=== PATIENT | male | born 1975 | race Hispanic/Latino ===

== ENCOUNTER 2021-04-06 16:53 | Inpatient (IN) | payer SELFPAY ==
[2021-04-05] MEDS: SODIUM CHLORIDE 0.9% 1000ML 1,000 ML IV SCH (21:30)
[~2021-04-06] VITALS: Ht 154.9 cm; Wt 59.6 kg
[2021-04-06 17:04] VITALS: BP 118/73
[2021-04-06 17:17] LABS: BASOPHILS % (AUTO) 0.4 % (0.0-5.0); EOSINOPHILS % (AUTO) 1.4 % (0.0-8.0); HEMATOCRIT 41.2 % (42-54); LYMPHOCYTES % (AUTO) 15.2 % (21.0-51.0); MEAN CORPUSCULAR HEMOGLOBIN 28.3 pg (27.0-33.0); MEAN CORPUSCULAR HGB CONC 33.7 g/dL (32.0-36.0); MEAN CORPUSCULAR VOLUME 83.9 fL (79-99); MONOCYTES % (AUTO) 15.2 % (3.0-13.0); NEUTROPHILS % (AUTO) 67.5 % (40.0-77.0); PLATELET COUNT (AUTO) 214 K/uL (130-400); RED BLOOD CELL COUNT(AUTO) 4.91 MIL/uL (4.50-6.20); WHITE BLOOD COUNT (AUTO) 7.7 K/uL (4.8-10.8)
[2021-04-06 17:28] LABS: CREATININE 2.3 mg/dL (0.5-1.5); POTASSIUM 3.5 mmol/L (3.5-5.1)
[2021-04-06 17:41] LABS: ALBUMIN 3.9 g/dL (3.5-5.0); BILIRUBIN,TOTAL 1.7 mg/dL (0.2-1.0)
[2021-04-06] MEDS ORDERED: LACTATED RINGERS 1000ML 1,000 ML IV ONE (17:45)
[2021-04-06 18:16] LABS: APPEARANCE,URINE Clear (CLEAR); BILIRUBIN,URINE Negative (NEGATIVE); COLOR,URINE Yellow (YELLOW); GLUCOSE, URINE (UA) Negative (NEGATIVE); KETONES,URINE 40 mg/dL (NEGATIVE); LEUKOCYTE ESTERASE ,URINE Negative (NEGATIVE); NITRATE,URINE Negative (NEGATIVE); OCCULT BLOOD,URINE Negative (NEGATIVE); PROTEIN,URINE Trace mg/dL (NEGATIVE)
[2021-04-06 18:18] LABS: BACTERIA,URINE Rare /HPF (None Seen); RBC,URINE None Seen /HPF (0-1); SQUAMOUS EPITHELIAL CELL,UR None Seen /HPF (0-2); WBC,URINE 0-1 /HPF (0-1)
[2021-04-06] MEDS ORDERED: SODIUM CHLORIDE 0.9% 1000ML 1,000 ML IV ONE ×2 (19:30)
[2021-04-06] MEDS ORDERED: LACTULOSE 20 GM/30 ML UDCUP PO PRN (20:15)
[2021-04-06] MEDS ORDERED: DIPHENHYDRAMINE HCL 25 MG CAPSULE PO PRN (20:15)
[2021-04-06] MEDS ORDERED: HYDRALAZINE HCL 20 MG/ML VIAL IV PRN (20:15)
[2021-04-06] MEDS ORDERED: ONDANSETRON HCL 4 MG/2 ML VIAL IV PRN (20:15)
[2021-04-06] MEDS ORDERED: ACETAMINOPHEN 325 MG TAB PO PRN (20:15)
[2021-04-06] MEDS ORDERED: NITROGLYCERIN 0.4 MG SL TAB SL PRN (20:15)
[2021-04-06] MEDS ORDERED: GUAIFENESIN-DM 200/20 MG 10 ML PO PRN (20:15)
[2021-04-06] MEDS ORDERED: ACETAMINOPHEN-CODEINE 300/30MG TAB PO PRN (20:15)
[2021-04-06] MEDS ORDERED: ALBUTEROL SULFATE 0.083% 2.5 MG/3 ML INH IH PRN (20:15)
[2021-04-06] MEDS ORDERED: MAG HYDROX/AL HYDROX/SIMETH ES 30 ML SUSP UDCUP PO PRN (20:15)
[2021-04-06] MEDS ORDERED: FAMOTIDINE/PF 20 MG/2 ML VIAL IV ONE (21:16)
[2021-04-06] MEDS: HEPARIN SODIUM 5000UNIT/ML 1ML VIAL SQ SCH (21:27)
[2021-04-07] VITALS (8 sets, daily range): BP systolic 95–108; BP diastolic 54–69
[2021-04-07 08:11] LABS: BASOPHILS % (AUTO) 0.6 % (0.0-5.0); EOSINOPHILS % (AUTO) 0.4 % (0.0-8.0); HEMATOCRIT 37.8 % (42-54); LYMPHOCYTES % (AUTO) 28.7 % (21.0-51.0); MEAN CORPUSCULAR HEMOGLOBIN 29.1 pg (27.0-33.0); MEAN CORPUSCULAR HGB CONC 33.3 g/dL (32.0-36.0); MEAN CORPUSCULAR VOLUME 87.3 fL (79-99); MONOCYTES % (AUTO) 14.9 % (3.0-13.0); NEUTROPHILS % (AUTO) 55.3 % (40.0-77.0); PLATELET COUNT (AUTO) 182 K/uL (130-400); RED BLOOD CELL COUNT(AUTO) 4.33 MIL/uL (4.50-6.20); RED CELL DISTRIBUTION WIDTH 13.2 % (11.0-15.5); WHITE BLOOD COUNT (AUTO) 7.1 K/uL (4.8-10.8)
[2021-04-07 08:33] LABS: CREATININE 0.8 mg/dL (0.5-1.5); POTASSIUM 3.8 mmol/L (3.5-5.1)
[2021-04-07] MEDS: FAMOTIDINE/PF 20 MG/2 ML VIAL IV SCH (08:52)
[2021-04-07] MEDS: HEPARIN SODIUM 5000UNIT/ML 1ML VIAL SQ SCH ×2 (08:52→22:45)
[2021-04-07] MEDS ORDERED: SODIUM CHLORIDE 0.9% 1000ML 1,000 ML IV ONE (09:46)
[2021-04-07] MEDS: SODIUM CHLORIDE 0.9% 1000ML 1,000 ML IV SCH ×2 (09:53→12:15)
[2021-04-08] VITALS (8 sets, daily range): BP systolic 102–121; BP diastolic 59–75
[2021-04-08] MEDS: SODIUM CHLORIDE 0.9% 1000ML 1,000 ML IV SCH ×2 (01:01→20:36)
[2021-04-08] MEDS: THIAMINE HCL 100 MG TABLET PO SCH (08:33)
[2021-04-08] MEDS: FOLIC ACID 1 MG TABLET PO SCH (08:33)
[2021-04-08] MEDS: FAMOTIDINE/PF 20 MG/2 ML VIAL IV SCH (08:33)
[2021-04-08] MEDS: HEPARIN SODIUM 5000UNIT/ML 1ML VIAL SQ SCH ×2 (08:34→20:41)
[2021-04-09 04:00] VITALS: BP 116/59
[2021-04-09] MEDS: SODIUM CHLORIDE 0.9% 1000ML 1,000 ML IV SCH (04:54)
[2021-04-09 08:00] VITALS: BP 123/82
[2021-04-09 08:20] LABS: BASOPHILS % (AUTO) 0.4 % (0.0-5.0); EOSINOPHILS % (AUTO) 1.2 % (0.0-8.0); HEMATOCRIT 35.5 % (42-54); LYMPHOCYTES % (AUTO) 47.3 % (21.0-51.0); MEAN CORPUSCULAR HEMOGLOBIN 29.3 pg (27.0-33.0); MEAN CORPUSCULAR HGB CONC 34.1 g/dL (32.0-36.0); MONOCYTES % (AUTO) 9.8 % (3.0-13.0); NEUTROPHILS % (AUTO) 41.1 % (40.0-77.0); PLATELET COUNT (AUTO) 158 K/uL (130-400); RED BLOOD CELL COUNT(AUTO) 4.13 MIL/uL (4.50-6.20); RED CELL DISTRIBUTION WIDTH 13.2 % (11.0-15.5); WHITE BLOOD COUNT (AUTO) 5.1 K/uL (4.8-10.8)
[2021-04-09 08:35] LABS: ALBUMIN 2.9 g/dL (3.5-5.0); BILIRUBIN,TOTAL 0.6 mg/dL (0.2-1.0); CREATININE 0.7 mg/dL (0.5-1.5); POTASSIUM 3.7 mmol/L (3.5-5.1); TOTAL PROTEIN, SERUM 6.2 g/dL (6.0-8.3)
[2021-04-09] MEDS: THIAMINE HCL 100 MG TABLET PO SCH (09:32)
[2021-04-09] MEDS: FAMOTIDINE/PF 20 MG/2 ML VIAL IV SCH (09:32)
[2021-04-09] MEDS: FOLIC ACID 1 MG TABLET PO SCH (09:32)
[2021-04-09] MEDS: HEPARIN SODIUM 5000UNIT/ML 1ML VIAL SQ SCH (09:35)
[2021-04-09] MEDS ORDERED: MVIT PO (09:44)
[2021-04-09 12:00] VITALS: BP 107/72
== END 2021-04-09 15:50 | disposition home or self-care (01) | DRG 683 ==
LOC: EDH 16:53 → EDHIP 16:54 → 3DH 04-07 21:08
PROVIDERS: ADMIT Internal Medicine; ATTEND Internal Medicine
DX: N17.9 Acute kidney failure, unspecified (principal); M62.82 Rhabdomyolysis; E86.0 Dehydration
CPT/HCPCS: 36415; 80048; 80053; 81001; 82550; 85025; 94664; G0378; J1644; J3490; J7030; J7120